=== PATIENT | male | born 1995 | race Caucasian/White ===

== ENCOUNTER 2016-09-12 17:37 | Emergency (ER) | payer OTHER ==
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
== END 2016-09-12 19:03 | disposition disaster alternative care site (69) ==
LOC: GACC 17:37
DX: M25.562 Pain in left knee (principal); Z91.040 Latex allergy status; Z90.89 Acquired absence of other organs; V13.4XXA Pedal cycle driver injured in collision with car, pick-up truck or van in traffic accident, initial encounter; Y93.I9 Activity, other involving external motion; Y99.8 Other external cause status; Y92.410 Unspecified street and highway as the place of occurrence of the external cause

== ENCOUNTER → 2016-09-12 | Emergency (ER) | payer SELFPAY | END | disposition disaster alternative care site (69) | LOC: GAMB 17:01 | DX: S80.811A Abrasion, right lower leg, initial encounter (principal); V89.2XXA Person injured in unspecified motor-vehicle accident, traffic, initial encounter; Y93.89 Activity, other specified ==